=== PATIENT | female | born 2000 | race African-American/Black ===

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

== ENCOUNTER 2022-04-01 15:55 | Emergency (ER) | payer OTHER, SELFPAY ==
[2022-04-01 16:07] VITALS: BP 155/92; PULSE 85; RESP 18; TEMP 36.7; O2SAT 100
--- NOTE | 2022-04-01 16:11 | ECG_ITS ---
Measurements Intervals [place] Rate: 80 P: 55 OR: 155 QRS: 73 QRSD: 88 T: 47 QT: 344 QTc: 397 Interpretive Statements SINUS RHYTHM NORMAL ECG NO PREVIOUS ECG AVAILABLE FOR COMPARISON Electronically Signed On 04-02-2022 16:35:15 CDT by All Diaz M.D.
[2022-04-01 16:29] LABS: Basophils Percent Auto 0.7 % (0.2-1.2); Eosinophils Absolute Auto 0.2 K/mm3 (0-0.3); Eosinophils Percent Auto 2.7 % (0-4.4); Hematocrit 37.9 % (37.0-47.0); Hemoglobin 11.7 g/dL (12.0-15.0); Lymphocytes Absolute Auto 2.64 K/mm3 (0.9-3.2); Mean Corpuscular HGB Conc 30.9 g/dl (32-36); Mean Corpuscular Hemoglobin 22.9 pg (26-34); Mean Corpuscular Volume 74.3 fl (80-100); Mean Platelet Volume 11.2 fl (7.4-10.4); Monocytes Absolute Auto 0.5 K/mm3 (0.1-0.6); Monocytes Percent Auto 8.2 % (2.6-8.5); Neutrophils Absolute Auto 2.7 K/mm3 (1.3-6.7); Neutrophils Percent Auto 44.4 % (45.5-73.1); Platelet Count Result 322 k/mm3 (150-375); Red Cell Distribution Width 17.2 % (11.5-14.5)
[2022-04-01 16:38] LABS: Alanine Aminotransferase 37 U/L (6-35); Albumin Level 4.6 g/dL (3.7-5.6); Alkaline Phosphatase 76 U/L (45-116); Anion Gap 9 mmol/L (8-16); Aspartate Amino Transferase 28 U/L (14-36); Bilirubin,Total 0.3 mg/dL (0.2-1.3); Blood Urea Nitrogen 12 mg/dL (8-21); Carbon Dioxide 27 mmol/L (22-30); Chloride 102 mmol/L (98-107); Estimated CRCL calculation 134 ml/min; Estimated Glomerular Filt Rate > 60; Glucose 97 mg/dL (65-110); Sodium 138 mmol/L (134-143)
[2022-04-01 16:43] LABS: Platelet Estimate Adequate (Adequate)
[2022-04-01 16:50] LABS: Hypochromasia 1+ (NORMAL)
[2022-04-01 16:54] LABS: Atypical Lymphocytes Present; Schistocytes None Seen (NORMAL)
--- NOTE | 2022-04-01 20:10 | PC.NURSE ---
pt ambulatory from waiting room to room without complaints.
[2022-04-01 20:45] VITALS: BP 148/77; PULSE 85
[2022-04-01 20:47] VITALS: BP 135/80; PULSE 82
[2022-04-01] MEDS: SODIUM CHLORIDE 0.9% IV 1,000 ML 999 ML IV CONT (20:47)
[2022-04-01 20:50] VITALS: BP 131/85; PULSE 96
[2022-04-01 21:07] LABS: Add Urine Microscopic? YES; Appearance Urine Cloudy (Clear); Bacteria Urine Trace /hpf; Bilirubin Urine Negative (Negative); Blood Urine 1+ (Negative); Color Urine Yellow (Yellow); Glucose Urine UA Negative (Negative); Ketones Urine Negative (Negative); Leukocyte Esterase Ur 2+ LEU/UL (Negative); Mucus Urine Rare /lpf; Nitrate Urine Negative (Negative); Protein Urine Negative (Negative); RBC Urine 0-2 /hpf (0-2); Specific Grav Ur 1.021 (1.001-1.035); Squamous Epithelial Cell Urine Few /hpf (Few); Urobilinogen Urine Negative mg/dL (<2.0)
--- NOTE | 2022-04-01 22:30 | ED.GENADULT ---
HPI - General Adult General Chief complaint: Syncope Stated complaint: headache, fainting lately , sick for days Time Seen by Provider: 04/01/22 20:12 History of Present Illness HPI narrative: Patient is a 21-year-old female who presents the emergency department with chief complaint of syncope. The patient reports over the last several days she has been having episodes whenever she stands up she gets lightheaded and has had several episodes where she has briefly passed out. Patient denies seizure-like activity denies bowel or bladder dysfunction. Patient states that she has not been injured denies fever denies chills denies focal neurological deficit. Related Data Allergies Allergy/AdvReac Type Severity Reaction Status Date / Time No Known Allergies Allergy Verified 04/01/22 21:00 Review of Systems Review of Systems: A 10 system review of systems was completed on the patient and is negative except for what is stated in the HPI. Nursing and ancillary documentation was reviewed. Exam Narrative: GENERAL: Well-appearing, well-nourished, and in no acute distress. HEAD: Normocephalic, atraumatic. EYES: PERRLA and EOMI. ENT: Nares clear, no rhinorrhea or epistaxis. Mucous membranes moist. NECK: Supple. CHEST: Clear to auscultation. No respiratory distress. HEART: Regular rate and rhythm. No murmur heard. Normal peripheral pulses. ABDOMEN: Soft, nontender, nondistended, normal active bowel sounds. EXTREMITIES: Normal range of motion. No edema. SKIN: Warm, dry, no rash. NEURO: No focal deficits. Alert and oriented x3. PSYCH: Normal mood and affect. Course Course Emergency Course: Patient noted with standing. Patient was given a liter normal saline and is feeling much better at this time. Vital Signs Vital signs: Vital Signs Temperature 36.7 C 04/01/22 16:07 Pulse Rate 85 04/01/22 16:07 Respiratory Rate 18 04/01/22 16:07 Blood Pressure 155/92 H 04/01/22 16:07 Pulse Oximetry 100 04/01/22 16:07 Oxygen Delivery Room Air 04/01/22 16:07 Temperature 36.7 C 04/01/22 16:07 Pulse Rate 96 04/01/22 20:50 Respiratory Rate 18 04/01/22 16:07 Blood Pressure 131/85 04/01/22 20:50 Pulse Oximetry 100 04/01/22 16:07 Oxygen Delivery Room Air 04/01/22 16:07 Medical Decision Making Vital Signs Vital Signs: Vital Signs Temperature 36.7 C 04/01/22 16:07 Pulse Rate 85 04/01/22 16:07 Respiratory Rate 18 04/01/22 16:07 Blood Pressure 155/92 H 04/01/22 16:07 Pulse Oximetry 100 04/01/22 16:07 Oxygen Delivery Room Air 04/01/22 16:07 Temperature 36.7 C 04/01/22 16:07 Pulse Rate 96 04/01/22 20:50 Respiratory Rate 18 04/01/22 16:07 Blood Pressure 131/85 04/01/22 20:50 Pulse Oximetry 100 04/01/22 16:07 Oxygen Delivery Room Air 04/01/22 16:07 Lab Data Result diagrams: 04/01/22 16:21 04/01/22 16:21 Labs: Lab Results 04/01/22 04/01/22 04/01/22 Range/Units 16:21 16:21 20:58 WBC 6.0 (4.5-10.0) K/mm3 RBC 5.10 (4.2-5.4) M/mm3 Hgb 11.7 L (12.0-15.0) g/dL Hct 37.9 (37.0-47.0) % MCV 74.3 L (80-100) fl MCH 22.9 L (26-34) pg MCHC 30.9 L (32-36) g/dl RDW 17.2 H (11.5-14.5) % Plt Count 322 (150-375) k/mm3 MPV 11.2 H (7.4-10.4) fl Immature Gran % (Auto) 0.0 (0-0.5) % Neut % (Auto) 44.4 L (45.5-73.1) % Lymph % (Auto) 44.0 (18.3-44.2) % [place] % (Auto) 8.2 (2.6-8.5) % Eos % (Auto) 2.7 (0-4.4) % Baso % (Auto) 0.7 (0.2-1.2) % Lymph # (Auto) 2.64 (0.9-3.2) K/mm3 [place] # (Auto) 0.5 (0.1-0.6) K/mm3 Eos # (Auto) 0.2 (0-0.3) K/mm3 Baso # (Auto) 0.0 (0.0-0.1) K/mm3 Abs Immat Gran (auto) 0.00 (0.00-0.031) K/mm3 Absolute Neuts (auto) 2.7 (1.3-6.7) K/mm3 Absolute Nucleated RBC 0.0 (0.0-0.012) K/mm3 Nucleated RBC % 0.0 (0.0-0.2) % Atypical Lymphocytes Present Platelet Estimate Adequate (Adequate) Hypochr
== END 2022-04-01 22:46 | disposition home or self-care (01) ==
PROVIDERS: Emergency Medicine; Emergency Provider Emergency Medicine
DX: R55 Syncope and collapse (principal)
CPT/HCPCS: 36415; 80053; 81001; 81025; 85025; 87086; 87088; 93005; 96360; 96361; 99283; J7030